=== PATIENT | male | born 1965 | race Two or more races ===

== ENCOUNTER 2020-12-28 10:30 | Inpatient (IN) | payer OTHER ==
[~2020-12-28] VITALS: Ht 188 cm; Wt 102.1 kg
[2020-12-28] MEDS ORDERED: LOSARTAN POTASS25 MG PO (14:55)
[2020-12-30] MEDS ORDERED: HYDRODIURIL12.5 MG (12:46)
[2020-12-30] MEDS ORDERED: DILTIAZEM 24HR180 MG (12:46)
[2020-12-30] MEDS ORDERED: FENOFIBRATE145 MG (12:46)
[2020-12-30] MEDS ORDERED: XARELTO20 MG (12:46)
[2020-12-30] MEDS ORDERED: AMIODARONE HCL200 MG (12:46)
[2021-01-02] MEDS ORDERED: METFORMIN HCL500 M4 (08:12)
[2021-01-02] MEDS ORDERED: SPIRONOLACTONE25 MG (08:12)
[2021-01-02] MEDS ORDERED: MIRTAZAPINE30 MG (08:12)
[2021-01-02] MEDS ORDERED: ZOLPIDEM TARTRA10 MG (08:13)
[2021-01-02] MEDS ORDERED: SIMVASTATIN20 MG (08:13)
[2021-01-13] MEDS ORDERED: AMOX-CLAV 875-1 EACH PO (13:40)
[2021-01-13] MEDS ORDERED: PERCOCET 5-3251 EACH PO (13:41)
[2021-01-13] MEDS ORDERED: LOPERAMIDE2 M1 PO (13:43)
== END 2021-01-13 15:01 | disposition home or self-care (01) | DRG 329 ==
LOC: O/R 12-30 05:30 → SURH 12-30 05:30
PROVIDERS: ADMIT Surgery; ATTEND Surgery
PROC: 0DTP4ZZ Resection of Rectum, Percutaneous Endoscopic Approach (ICD-10-PCS; 2020-12-30)
PROC: 07BC4ZX Excision of Pelvis Lymphatic, Percutaneous Endoscopic Approach, Diagnostic (ICD-10-PCS; 2020-12-30)
PROC: 0D1B4Z4 Bypass Ileum to Cutaneous, Percutaneous Endoscopic Approach (ICD-10-PCS; 2020-12-30)
PROC: 0DJD8ZZ Inspection of Lower Intestinal Tract, Via Natural or Artificial Opening Endoscopic (ICD-10-PCS; 2020-12-30)
PROC: 0DBN4ZZ Excision of Sigmoid Colon, Percutaneous Endoscopic Approach (ICD-10-PCS; principal; 2020-12-30 14:15)
PROC: 4A12X4Z Monitoring of Cardiac Electrical Activity, External Approach (ICD-10-PCS; 2020-12-31)
PROC: 02HV33Z Insertion of Infusion Device into Superior Vena Cava, Percutaneous Approach (ICD-10-PCS; 2021-01-04)
PROC: 0W9J30Z Drainage of Pelvic Cavity with Drainage Device, Percutaneous Approach (ICD-10-PCS; 2021-01-10)
DX: C19 Malignant neoplasm of rectosigmoid junction (principal); K68.19 Other retroperitoneal abscess; I48.20 Chronic atrial fibrillation, unspecified; I50.22 Chronic systolic (congestive) heart failure; K56.7 Ileus, unspecified; N17.8 Other acute kidney failure; J98.11 Atelectasis; T81.43XA Infection following a procedure, organ and space surgical site, initial encounter; Z79.01 Long term (current) use of anticoagulants; I11.0 Hypertensive heart disease with heart failure; I25.5 Ischemic cardiomyopathy; F17.200 Nicotine dependence, unspecified, uncomplicated; E86.9 Volume depletion, unspecified; Z95.810 Presence of automatic (implantable) cardiac defibrillator; B96.20 Unspecified Escherichia coli [E. coli] as the cause of diseases classified elsewhere

== ENCOUNTER 2021-02-02 05:45 | Day surgery (SDC) | payer OTHER ==
[~2021-02-02 05:45] MED LIST: AMIODARONE HCL200 MG; AMOX-CLAV 875-1 EACH PO; DILTIAZEM 24HR180 MG; FENOFIBRATE145 MG; HYDRODIURIL12.5 MG; LOPERAMIDE2 M1 PO; LOSARTAN POTASS25 MG PO; METFORMIN HCL500 M4; MIRTAZAPINE30 MG; PERCOCET 5-3251 EACH PO; SIMVASTATIN20 MG; SPIRONOLACTONE25 MG; XARELTO20 MG; ZOLPIDEM TARTRA10 MG
[2021-02-02] MEDS ORDERED: ULTRAM50 MG PO (09:39)
== END 2021-02-02 10:25 | disposition home or self-care (01) ==
LOC: CIR.AMB 05:45
PROVIDERS: ATTEND Surgery
DX: C20 Malignant neoplasm of rectum (principal); Z20.822 Contact with and (suspected) exposure to COVID-19
CPT/HCPCS: 36561; C1751

== ENCOUNTER 2022-02-19 14:59 | Inpatient (IN) | payer OTHER ==
[~2022-02-19] VITALS: Ht 190.5 cm; Wt 194.6 kg
[~2022-02-19 14:59] MED LIST changes: +ULTRAM50 MG PO
[2022-02-22] MEDS ORDERED: GABAPENTIN800 M1 (08:02)
[2022-02-22] MEDS ORDERED: TAMSULOSIN HCL0.4 MG (08:02)
[2022-02-22] MEDS ORDERED: ESCITALOPRAM OX20 MG (08:02)
[2022-02-22] MEDS ORDERED: PROPAFENONE HC225 MG (08:02)
[2022-02-22] MEDS ORDERED: MIRTAZAPINE30 MG (08:02)
[2022-02-28] MEDS ORDERED: PERCOCET 5-3251 EACH PO (15:11)
== END 2022-02-28 17:57 | disposition home or self-care (01) | DRG 347 ==
LOC: O/R 02-22 05:42 → SURH 02-22 05:42 → SURG 02-22 07:00 → SURH 02-22 10:26 → SURG 02-22 10:30 → SURH 02-28 17:57
PROVIDERS: ADMIT Surgery; ATTEND Surgery
PROC: 0DBB4ZZ Excision of Ileum, Percutaneous Endoscopic Approach (ICD-10-PCS; principal; 2022-02-22 07:00)
PROC: 4A12X4Z Monitoring of Cardiac Electrical Activity, External Approach (ICD-10-PCS; 2022-02-23)
DX: Z43.2 Encounter for attention to ileostomy (principal); K65.1 Peritoneal abscess; C20 Malignant neoplasm of rectum; K62.5 Hemorrhage of anus and rectum; K66.0 Peritoneal adhesions (postprocedural) (postinfection); I48.0 Paroxysmal atrial fibrillation; R19.7 Diarrhea, unspecified; Z20.822 Contact with and (suspected) exposure to COVID-19; Z92.21 Personal history of antineoplastic chemotherapy; I11.0 Hypertensive heart disease with heart failure; I50.9 Heart failure, unspecified; E78.5 Hyperlipidemia, unspecified

== ENCOUNTER 2024-04-21 09:48 | Inpatient (IN) | payer OTHER ==
[~2024-04-21] VITALS: Ht 213.4 cm; Wt 81.6 kg
[~2024-04-21 09:48] MED LIST changes: +ESCITALOPRAM OX20 MG; +GABAPENTIN800 M1; +PROPAFENONE HC225 MG; +TAMSULOSIN HCL0.4 MG
--- NOTE | 2024-04-21 10:14 | NUR ---
PTE LLEGA EN AMBULANCIA POR COMPLIACACION DE CIRUGIA . POR EL , [place].SE LE KYLEE Y SE DOCUEMTA.
[2024-04-21] MEDS ORDERED: 0.9 % SODIUM CHLORIDE 1,000 ML IV STA (10:31)
[2024-04-21] MEDS ORDERED: MORPHINE SULFATE 4 MG/ML VIAL IV STA (10:34)
[2024-04-21 11:06] LABS: HEMATOCRIT 29.6 % (39.0-48.0); MEAN CELL VOLUME 96.2 fL (80.0-100.00); MEAN CORPUSCULAR HGB CONC 33.3 g/dl (32.0-36.0); PLATELET COUNT 256 K/uL (150-450); RED BLOOD COUNT 3.08 M/uL (4.00-6.00)
[2024-04-21 11:08] LABS: MEAN CORPUSCULAR HEMOGLOBIN 31.8 pg (27.00-32.0); RED CELL DISTRIBUTION WIDTH 17.9 % (11.5-14.5)
[2024-04-21 11:09] LABS: HEMOGLOBIN 9.8 g/dL (13-16.00)
--- NOTE | 2024-04-21 11:15 | NUR ---
PACIENTE EVALUADO POR QUIEN ORDENA TRATAMIENTO MEDICO, SE LE ORIENTA A PACIENTE SOBRE EL MISMO Y REFIERE ENTENDER, SE LE COLECTAN MUESTRAS Y SE CANLAIZA BAJO MEDIDAS ASEPTICAS. SE LE ADMINSITRAN MEDICAMENTOS JUVENCIO ORDEN. PACIENTE TOLERA Y NO PRESENTA REACCION ADVERSA.
[2024-04-21 11:32] LABS: ALBUMIN 1.9 gm/dL (3.4-5.0); BILIRUBIN TOTAL 0.58 mg/dL (0.3-1.2); BILIRUBIN,CONJUGATED 0.19 mg/dL (0.0-0.2); BILIRUBIN,UNCONJUGATED 0.39 mg/dL (0.0-0.6); CALCIUM 9.2 mg/dL (8.5-10.1); CREATININE SERUM 0.68 mg/dL (0.70-1.30); GFR 119.35; POTASSIUM 3.53 mEq/L (3.5-5.1); TOTAL PROTEIN 6.2 gm/dL (6.4-8.2)
[2024-04-21 11:49] LABS: INR 1.26; PARTIAL THROMBOPLASTIN TIME 31.2 SECONDS (22.0-34.0); PROTHROMBIN TIME 13.5 SECONDS (9.0-11.5)
[2024-04-21] MEDS ORDERED: PIPERACILLIN/TAZOBACTAM SODIUM 3.375 GM in 0.9 % SODIUM CHLORIDE 100 ML IV SCH (12:00)
[2024-04-21] MEDS ORDERED: MORPHINE SULFATE 4 MG/ML CARTRIDGE IV ONE (12:30)
[2024-04-21 12:36] LABS: PH,URINE 6.5 (5.0-8.0); URINE APPEARANCE Clear; URINE BILIRRUBIN Negative (NEGATIVE); URINE BLOOD Negative; URINE COLOR Yellow; URINE GLUCOSE Negative (NEGATIVE); URINE KETONE Negative (NEGATIVE); URINE LEUKOCYTE Negative; URINE NITRATE Negative; URINE PROTEIN Negative (NEGATIVE); URINE UROBILINOGEN 0.2 E.U./dl
[2024-04-21 12:39] LABS: URINE BACTERIA 8.8 uL (0.0-1933); URINE WBC 4.6 uL (0.0-23.2)
[2024-04-21] MEDS ORDERED: FAMOTIDINE/PF 20 MG/2 ML VIAL IV SCH (12:40)
[2024-04-21] MEDS ORDERED: RINGERS SOLUTION,LACTATED 1,000 ML IV SCH (12:45)
[2024-04-21] MEDS ORDERED: ONDANSETRON HCL 2 MG/ML VIAL IV PRN (12:45)
[2024-04-21] MEDS ORDERED: MORPHINE SULFATE 4 MG/ML VIAL IV PRN (12:45)
[2024-04-21] MEDS ORDERED: HYOSCYAMINE SULFATE 0.125 MG TAB.SUBL SL SCH (13:00)
--- NOTE | 2024-04-21 15:15 | NUR ---
1430: PACIENTE ALERTA Y ORIENTADO A QUIEN SE LE PROVEE CAMBIO DE ROPA PARA OR, EL MISMO ABANDONA NIKKI DE EMERGENCIAS CON ESCOLTA DE TURNO, PACIENTE CANALIZADO X2 CON VENOPUNCIONES PATENTES, LIBRES DE EDEMA Y ERITEMA. RECIBIENDO PRBC'S BAJANDO A 125ML/HR, Y 0.9%NSS BAJANDO A 100ML/HR. ESCOLTA DE TURNO SE LLEVA RECORD DE PACIENTE. PENDIENTE CULMINAR DOCUMENTACION DE PRBC'S YA QUE LA MISMA NO ESQUIVEL CULMINADO Y PACIENTE FUE LLEVADO A NIKKI DE OPERACIONES.
[2024-04-21] MEDS ORDERED: LIDOCAINE HCL 1%/EPINEPHRINE 20ML VIAL IJ ONE (16:00)
[2024-04-21] MEDS ORDERED: BUPIVACAINE HCL 30 ML VIAL IJ ONE (16:00)
[2024-04-21] MEDS ORDERED: POVIDONE-IODINE 118 ML BOTT TOP ONE (16:00)
[2024-04-21] MEDS ORDERED: HEMOSTATIC MATRIX 1 KIT KIT TOP ONE (16:15)
[2024-04-21] MEDS ORDERED: DIBUCAINE 15 GM OINT..GM. TUBE RECTAL ONE (16:15)
[2024-04-21] MEDS ORDERED: MORPHINE SULFATE 4 MG/ML VIAL IV ONE (17:05)
[2024-04-21 19:50] VITALS: BP 162/78; O2SAT 98
[2024-04-22] VITALS (8 sets, daily range): BP systolic 101–138; BP diastolic 55–79; O2SAT 97–99
[2024-04-22 08:17] LABS: HEMATOCRIT 29.7 % (39.0-48.0); HEMOGLOBIN 9.7 g/dL (13-16.00); MEAN CELL VOLUME 95.3 fL (80.0-100.00); MEAN CORPUSCULAR HEMOGLOBIN 31.1 pg (27.00-32.0); MEAN CORPUSCULAR HGB CONC 32.7 g/dl (32.0-36.0); PLATELET COUNT 261 K/uL (150-450); RED BLOOD COUNT 3.12 M/uL (4.00-6.00); RED CELL DISTRIBUTION WIDTH 17.8 % (11.5-14.5)
[2024-04-22 08:55] LABS: ALBUMIN 1.7 gm/dL (3.4-5.0); CALCIUM 8.1 mg/dL (8.5-10.1); CREATININE SERUM 0.62 mg/dL (0.70-1.30); GFR 132.78; PHOSPHOROUS 3.6 mg/dL (2.5-4.9); POTASSIUM 3.71 mEq/L (3.5-5.1)
[2024-04-22 08:59] LABS: MAGNESIUM 1.4 mg/dL (1.8-2.4)
[2024-04-22] MEDS ORDERED: ENOXAPARIN SODIUM 40 MG/0.4 ML SYRINGE SUBCUTANEO SCH (09:00)
[2024-04-22] MEDS ORDERED: GABAPENTIN 300 MG CAPSULE PO SCH (09:11)
[2024-04-22] MEDS ORDERED: ACETAMINOPHEN 500 MG GEL..CAP PO SCH (09:11)
[2024-04-22] MEDS ORDERED: DEXTROSE 50 % IN WATER 0.5 G/ML DISP.SYRIN IV PRN (10:30)
[2024-04-22] MEDS ORDERED: INSULIN LISPRO 1,000 UNIT/10 ML UNITS SUBCUTANEO PRN (10:30)
[2024-04-22] MEDS ORDERED: VANCOMYCIN HCL 1,000 MG VIAL IV NR (11:00)
[2024-04-22] MEDS ORDERED: MAGNESIUM SULFATE IN WATER 4 GM/100 ML PIGGYBACK IV NR (12:00)
[2024-04-22] MEDS ORDERED: SERTRALINE HCL 50 MG TABLET PO NR (12:00)
[2024-04-22] MEDS ORDERED: MEROPENEM 500 MG/VIAL VIAL IV SCH (12:00)
[2024-04-22] MEDS ORDERED: MORPHINE SULFATE 4 MG/ML CARTRIDGE IV PRN (14:30)
[2024-04-22] MEDS ORDERED: AMINO ACIDS/PROTEIN HYDROLYS 30 ML BLIST.PACK PO SCH (17:00)
[2024-04-22] MEDS ORDERED: CALCIUM CARBONATE/VITAMIN D3 1 TAB TABLET PO SCH (17:00)
[2024-04-22] MEDS ORDERED: METRONIDAZOLE/SODIUM CHLORIDE 100 ML IV SCH (17:00)
[2024-04-22] MEDS ORDERED: VANCOMYCIN HCL 1,000 MG VIAL IV SCH (21:00)
[2024-04-23] VITALS (8 sets, daily range): BP systolic 118–136; BP diastolic 85–97; O2SAT 97–99
[2024-04-23 07:43] LABS: HEMATOCRIT 29.3 % (39.0-48.0); MEAN CELL VOLUME 94.2 fL (80.0-100.00); MEAN CORPUSCULAR HEMOGLOBIN 32.2 pg (27.00-32.0); MEAN CORPUSCULAR HGB CONC 34.2 g/dl (32.0-36.0); PLATELET COUNT 283 K/uL (150-450); RED CELL DISTRIBUTION WIDTH 18.7 % (11.5-14.5)
[2024-04-23] MEDS ORDERED: SERTRALINE HCL 50 MG TABLET PO SCH (09:00)
[2024-04-23 10:00] LABS: ALBUMIN 1.6 gm/dL (3.4-5.0); BILIRUBIN TOTAL 0.47 mg/dL (0.3-1.2); CALCIUM 7.9 mg/dL (8.5-10.1); CREATININE SERUM 0.43 mg/dL (0.70-1.30); GFR 202.55; GLOBULINA 3.3 G/DL (2.4-3.5); MAGNESIUM 1.6 mg/dL (1.8-2.4); PHOSPHOROUS 3.2 mg/dL (2.5-4.9); POTASSIUM 3.52 mEq/L (3.5-5.1); TOTAL PROTEIN 4.9 gm/dL (6.4-8.2)
[2024-04-23 10:02] LABS: C-REACTIVE PROTEIN 29.2 MG/DL (0.00-0.29)
[2024-04-23] MEDS ORDERED: HYOSCYAMINE SULFATE 0.125 MG TAB.SUBL SL PRN (10:17)
[2024-04-23] MEDS ORDERED: GABAPENTIN 300 MG CAPSULE PO PRN (10:17)
[2024-04-23] MEDS ORDERED: ENOXAPARIN SODIUM 40 MG/0.4 ML SYRINGE SUBCUTANEO ONE (10:45)
[2024-04-23 12:26] LABS: CALCIUM 7.9 mg/dL (8.5-10.1); CHOL HDL RATIO 8.2 (0-5.0); CREATININE SERUM 0.46 mg/dL (0.70-1.30); GFR 187.38; POTASSIUM 3.56 mEq/L (3.5-5.1)
[2024-04-23] MEDS ORDERED: AMINO ACIDS 4.25%/DEXTROSE 10% 1,000 ML CENTRAL SCH (17:00)
[2024-04-23] MEDS ORDERED: METOPROLOL TARTRATE 25 MG TABLET PO SCH (21:00)
[2024-04-23] MEDS ORDERED: ENOXAPARIN SODIUM 80 MG/0.8 ML SYRINGE SUBCUTANEO SCH (21:00)
[2024-04-24] VITALS (8 sets, daily range): BP systolic 126–139; BP diastolic 80–83; O2SAT 96–100
[2024-04-24] MEDS ORDERED: SILVER SULFADIAZINE 50 GM,NYSTATIN 30 GM,ZINC OXIDE 30 GM TOP SCH ×2 (17:00)
[2024-04-25] VITALS (8 sets, daily range): BP systolic 118–132; BP diastolic 76–88; O2SAT 95–99
[2024-04-25 07:57] LABS: HEMATOCRIT 30.1 % (39.0-48.0); HEMOGLOBIN 9.8 g/dL (13-16.00); MEAN CELL VOLUME 96.6 fL (80.0-100.00); MEAN CORPUSCULAR HEMOGLOBIN 31.6 pg (27.00-32.0); MEAN CORPUSCULAR HGB CONC 32.7 g/dl (32.0-36.0); PLATELET COUNT 269 K/uL (150-450); RED BLOOD COUNT 3.11 M/uL (4.00-6.00); RED CELL DISTRIBUTION WIDTH 18.3 % (11.5-14.5)
[2024-04-25 08:12] LABS: ALBUMIN 1.6 gm/dL (3.4-5.0); BILIRUBIN TOTAL 0.19 mg/dL (0.3-1.2); CALCIUM 7.7 mg/dL (8.5-10.1); CREATININE SERUM 0.4 mg/dL (0.70-1.30); GFR 220.18; GLOBULINA 3.4 G/DL (2.4-3.5); PHOSPHOROUS 2.5 mg/dL (2.5-4.9); POTASSIUM 3.75 mEq/L (3.5-5.1)
[2024-04-25 08:41] LABS: MAGNESIUM 1.4 mg/dL (1.8-2.4)
[2024-04-25] MEDS ORDERED: AMPICILLIN SODIUM/SULBACTAM NA 3,000 MG VIAL IV SCH (18:00)
[2024-04-26] VITALS (7 sets, daily range): BP systolic 115–125; BP diastolic 60–90; O2SAT 96–99
[2024-04-27 01:00] VITALS: BP 135/91; O2SAT 95
[2024-04-27 07:12] LABS: HEMATOCRIT 29.6 % (39.0-48.0); HEMOGLOBIN 9.9 g/dL (13-16.00); MEAN CELL VOLUME 95.3 fL (80.0-100.00); MEAN CORPUSCULAR HEMOGLOBIN 31.9 pg (27.00-32.0); MEAN CORPUSCULAR HGB CONC 33.4 g/dl (32.0-36.0); PLATELET COUNT 343 K/uL (150-450); RED BLOOD COUNT 3.11 M/uL (4.00-6.00); RED CELL DISTRIBUTION WIDTH 18.2 % (11.5-14.5)
[2024-04-27 07:37] LABS: INR 1.74; PARTIAL THROMBOPLASTIN TIME 34.8 SECONDS (22.0-34.0)
[2024-04-27 07:40] LABS: PROTHROMBIN TIME 18.2 SECONDS (9.0-11.5)
[2024-04-27] MEDS ORDERED: MORPHINE SULFATE 4 MG/ML CARTRIDGE IV PRN (08:00)
[2024-04-27 08:06] LABS: ALBUMIN 1.7 gm/dL (3.4-5.0); ALKALINE PHOSPHATASE 80 U/L (50-136); ALT/SGPT 13 U/L (12-78); ANION GAP 8 (10.0-20.0); AST/SGOT 18 U/L (15-37); BILIRUBIN TOTAL 0.25 mg/dL (0.3-1.2); BILIRUBIN,CONJUGATED < 0.10 mg/dL (0.0-0.2); BILIRUBIN,UNCONJUGATED 0.15 mg/dL (0.0-0.6); BLOOD UREA NITROGEN 10 mg/dL (7-18); BUN CREA RATIO 20 (7.0-25.0); CARBON DIOXIDE 32 mEq/L (21-32); CHLORIDE 106 mmol/L (98-107); CHOL HDL RATIO 5.8 (0-5.0); CHOLESTEROL 75 mg/dL (0-200); GFR 170.19; GLOBULINA 3.8 G/DL (2.4-3.5); GLUCOSE FASTING 122 mg/dL (65-100); LDL 31 mg/dl (0-130); OSMOLALITY SERUM 283 MOSM/KG (275-295); SODIUM 142 mmol/L (136-145); TOTAL PROTEIN 5.5 gm/dL (6.4-8.2); TRIGLYCERIDES 153 mg/dL (0-150); VLDL 30 (0-39)
[2024-04-27 08:11] LABS: HDL 13 mg/dl (40-60)
[2024-04-27 08:42] VITALS: BP 132/89; O2SAT 99
[2024-04-27] MEDS ORDERED: ENOXAPARIN SODIUM 40 MG/0.4 ML SYRINGE SUBCUTANEO SCH (09:00)
[2024-04-27 11:53] LABS: UREA CLEARANCE 65.5 ML/MIN
[2024-04-27 12:00] VITALS: BP 138/91; O2SAT 97
[2024-04-27 16:50] VITALS: BP 125/90; O2SAT 95
[2024-04-27] MEDS ORDERED: METOPROLOL SUCCINATE 50 MG TAB.SR.24H PO STA (20:37)
[2024-04-28 01:23] VITALS: BP 169/83; O2SAT 97
[2024-04-28 01:45] VITALS: O2SAT 98
[2024-04-28 05:44] VITALS: O2SAT 96
[2024-04-28 08:30] VITALS: BP 140/90; O2SAT 96
[2024-04-28 08:48] LABS: INR 1.89; PARTIAL THROMBOPLASTIN TIME 34.5 SECONDS (22.0-34.0)
[2024-04-28 08:53] LABS: PROTHROMBIN TIME 19.7 SECONDS (9.0-11.5)
[2024-04-28 16:00] VITALS: BP 137/87; O2SAT 95
[2024-04-28 19:31] VITALS: O2SAT 98
[2024-04-28 19:57] LABS: PT 50:50 13.4 SECONDS (9.7-11.4); PTT 50:50 30.5 SECONDS (22.4-33.0)
[2024-04-29] VITALS (8 sets, daily range): BP systolic 103–130; BP diastolic 69–75; O2SAT 91–100
[2024-04-29 06:32] LABS: HEMATOCRIT 27.9 % (39.0-48.0); HEMOGLOBIN 9.1 g/dL (13-16.00); MEAN CORPUSCULAR HEMOGLOBIN 30.9 pg (27.00-32.0); MEAN CORPUSCULAR HGB CONC 32.5 g/dl (32.0-36.0); PLATELET COUNT 354 K/uL (150-450); RED BLOOD COUNT 2.94 M/uL (4.00-6.00); RED CELL DISTRIBUTION WIDTH 18.6 % (11.5-14.5)
[2024-04-29 06:49] LABS: INR 2.07; PARTIAL THROMBOPLASTIN TIME 35.9 SECONDS (22.0-34.0)
[2024-04-29 06:50] LABS: PROTHROMBIN TIME 21.4 SECONDS (9.0-11.5)
[2024-04-29] MEDS ORDERED: FUROsemide 20 MG/2 ML VIAL IV SCH (18:41)
[2024-04-29] MEDS ORDERED: ONDANSETRON HCL 2 MG/ML VIAL IV SCH (20:06)
[2024-04-29] MEDS ORDERED: METOPROLOL TARTRATE 25 MG TABLET PO SCH (21:00)
[2024-04-29] MEDS ORDERED: ZOLPIDEM TARTRATE 5 MG TABLET PO SCH (21:00)
[2024-04-30 01:02] VITALS: BP 79/61; O2SAT 97
[2024-04-30 03:52] VITALS: O2SAT 98
[2024-04-30] MEDS ORDERED: PHYTONADIONE 10 MG/ML AMPUL SUBCUTANEO ONE (06:15)
[2024-04-30 08:00] VITALS: BP 110/56; O2SAT 97
[2024-04-30] MEDS ORDERED: METOPROLOL TARTRATE 50 MG TABLET PO SCH (09:00)
[2024-04-30] MEDS ORDERED: ONDANSETRON HCL 2 MG/ML VIAL IV SCH (09:00)
[2024-04-30 09:04] LABS: ALBUMIN 1.9 gm/dL (3.4-5.0); BILIRUBIN,CONJUGATED 0.34 mg/dL (0.0-0.2); BILIRUBIN,UNCONJUGATED 0.66 mg/dL (0.0-0.6); CALCIUM 8.1 mg/dL (8.5-10.1); CREATININE SERUM 0.61 mg/dL (0.70-1.30); GFR 135.29; GLOBULINA 4.3 G/DL (2.4-3.5); POTASSIUM 4.13 mEq/L (3.5-5.1); TOTAL PROTEIN 6.2 gm/dL (6.4-8.2)
[2024-04-30 09:17] LABS: D DIMER 3.14 MG/L; PARTIAL THROMBOPLASTIN TIME 36.7 SECONDS (22.0-34.0)
[2024-04-30 09:20] LABS: PROTHROMBIN TIME 23.7 SECONDS (9.0-11.5)
[2024-04-30 09:20] LABS: FIBRINOGEN > 860 mg/dL (187.0-446.0)
[2024-04-30 09:21] LABS: INR 2.31
[2024-04-30] MEDS ORDERED: PHYTONADIONE 10 MG/ML AMPUL SUBCUTANEO STA (10:56)
[2024-04-30 12:37] LABS: HEMATOCRIT 31.2 % (39.0-48.0); HEMOGLOBIN 10.4 g/dL (13-16.00); MEAN CELL VOLUME 93.1 fL (80.0-100.00); MEAN CORPUSCULAR HGB CONC 33.3 g/dl (32.0-36.0); PLATELET COUNT 349 K/uL (150-450); RED BLOOD COUNT 3.35 M/uL (4.00-6.00); RED CELL DISTRIBUTION WIDTH 19.7 % (11.5-14.5)
[2024-04-30 16:36] VITALS: O2SAT 94
[2024-04-30 17:08] VITALS: BP 146/79; O2SAT 100
[2024-04-30 20:50] VITALS: O2SAT 97
[2024-05-01] VITALS (7 sets, daily range): BP systolic 104–138; BP diastolic 69–88; O2SAT 94–100
[2024-05-01] MEDS ORDERED: METOPROLOL TARTRATE 50 MG TABLET PO SCH (01:00)
[2024-05-01 07:56] LABS: PT 50:50 11.5 SECONDS (9.7-11.4); PTT 50:50 30.1 SECONDS (22.4-33.0)
[2024-05-01] MEDS ORDERED: PATIENTS OWN MEDICATION (MEDICAMENTO EN PISO) PO SCH (09:00)
[2024-05-01 09:19] LABS: PLATELET ESTIMATE NORMAL (NORMAL)
[2024-05-01 13:25] LABS: PT 50:50 10.9 SECONDS (9.7-11.4); PTT 50:50 28.2 SECONDS (22.4-33.0)
[2024-05-01 13:26] LABS: INR 1.45; PARTIAL THROMBOPLASTIN TIME 30.2 SECONDS (22.0-34.0); PROTHROMBIN TIME 15.4 SECONDS (9.0-11.5)
[2024-05-01] MEDS ORDERED: MORPHINE SULFATE 2 MG/ML CARTRIDGE IV ONE ×2 (21:35→22:05)
[2024-05-01] MEDS ORDERED: SUGAMMADEX SODIUM 200 MG/2 ML VIAL IV ONE (23:15)
[2024-05-02] VITALS (8 sets, daily range): BP systolic 90–129; BP diastolic 64–81; O2SAT 90–100
[2024-05-02] MEDS ORDERED: MEPERIDINE HCL/PF 25 MG/ML VIAL IV PRN (13:00)
[2024-05-02] MEDS ORDERED: DILTIAZEM HCL 125 MG in 0.9 % SODIUM CHLORIDE 125 ML IV SCH (16:45)
[2024-05-02] MEDS ORDERED: DILTIAZEM HCL 125 MG in 0.9 % SODIUM CHLORIDE 100 ML IV SCH (16:45)
[2024-05-03 00:40] VITALS: BP 104/67; O2SAT 94
[2024-05-03 02:00] VITALS: O2SAT 100
[2024-05-03 08:00] VITALS: BP 131/82; O2SAT 100
[2024-05-03 09:24] LABS: ALBUMIN 1.9 gm/dL (3.4-5.0); BILIRUBIN TOTAL 0.59 mg/dL (0.3-1.2); CALCIUM 8.1 mg/dL (8.5-10.1); CREATININE SERUM 0.79 mg/dL (0.70-1.30); GFR 100.39; GLOBULINA 4.6 G/DL (2.4-3.5); PHOSPHOROUS 2.7 mg/dL (2.5-4.9); POTASSIUM 3.77 mEq/L (3.5-5.1); TOTAL PROTEIN 6.5 gm/dL (6.4-8.2)
[2024-05-03 09:33] LABS: C-REACTIVE PROTEIN 19.4 MG/DL (0.00-0.29); MAGNESIUM 1.4 mg/dL (1.8-2.4)
[2024-05-03] MEDS ORDERED: ENOXAPARIN SODIUM 40 MG/0.4 ML SYRINGE SUBCUTANEO STA (12:14)
[2024-05-03] MEDS ORDERED: FUROsemide 20 MG/2 ML VIAL IV SCH (13:00)
[2024-05-03] MEDS ORDERED: TAMSULOSIN HCL 0.4 MG CAP PO NR (13:00)
[2024-05-03] MEDS ORDERED: PATIENTS OWN MEDICATION (MEDICAMENTO EN PISO) PO STA (13:28)
[2024-05-03] MEDS ORDERED: METOPROLOL SUCCINATE 50 MG TAB.SR.24H PO STA (15:03)
[2024-05-03] MEDS ORDERED: METOPROLOL TARTRATE 50 MG TABLET PO STA (15:29)
[2024-05-03] MEDS ORDERED: PATIENTS OWN MEDICATION (MEDICAMENTO EN PISO) PO SCH (15:30)
[2024-05-03 16:00] VITALS: BP 106/70; O2SAT 100
[2024-05-03 17:54] VITALS: O2SAT 100
[2024-05-03] MEDS ORDERED: FUROsemide 40 MG/4 ML VIAL IV STA (18:21)
[2024-05-03] MEDS ORDERED: AMIODARONE IN DEXTROSE,ISO-OSM 360 MG/200 ML IV.SOLN IV SCH (18:30)
[2024-05-03 18:35] VITALS: BP 110/70; O2SAT 95
[2024-05-03] MEDS ORDERED: AMIODARONE HCL 50 MG/ML AMPUL IV SCH (18:45)
[2024-05-03] MEDS ORDERED: AMIODARONE HCL 50 MG/ML AMPUL IV ONE (19:00)
[2024-05-03] MEDS ORDERED: FUROSEMIDE IV SCH (20:00)
[2024-05-03] MEDS ORDERED: SODIUM CHLORIDE 0.9% IV SCH (20:00)
[2024-05-03] MEDS ORDERED: METOPROLOL SUCCINATE 50 MG TAB.SR.24H PO SCH (21:00)
[2024-05-04] MEDS ORDERED: METOPROLOL TARTRATE 50 MG TABLET PO SCH (01:00)
[2024-05-04] MEDS ORDERED: PATIENTS OWN MEDICATION (MEDICAMENTO EN PISO) PO SCH (09:00)
[2024-05-04] MEDS ORDERED: ENOXAPARIN SODIUM 40 MG/0.4 ML SYRINGE SUBCUTANEO SCH (09:00)
[2024-05-04] MEDS ORDERED: TAMSULOSIN HCL 0.4 MG CAP PO SCH (09:00)
[2024-05-06 12:10] LABS: VITAMIN K < 0.10 ng/mL (0.10-2.20)
[2024-05-06 14:04] LABS: FACTOR VII ACTIVITY 14 % (51-186)
== END 2024-05-03 23:40 | disposition expired | DRG 166 ==
LOC: ER 09:48 → SURH 12:52 → O/R 12:52 → SEC-K 12:52 → O/R 14:50 → SURH 17:27
PROVIDERS: General Practice; Internal Medicine Infectious Disease; Surgery; ADMIT Surgery; ATTEND Surgery
PROC: 30233L1 Transfusion of Nonautologous Fresh Plasma into Peripheral Vein, Percutaneous Approach (ICD-10-PCS; 2024-04-21)
PROC: 0D9P0ZZ Drainage of Rectum, Open Approach (ICD-10-PCS; 2024-04-21)
PROC: 0J9B0ZZ Drainage of Perineum Subcutaneous Tissue and Fascia, Open Approach (ICD-10-PCS; 2024-04-21)
PROC: 3E0T3BZ Introduction of Anesthetic Agent into Peripheral Nerves and Plexi, Percutaneous Approach (ICD-10-PCS; 2024-04-21)
PROC: BW21YZZ Computerized Tomography (CT Scan) of Abdomen and Pelvis using Other Contrast (ICD-10-PCS; 2024-04-21)
PROC: 0JB70ZZ Excision of Back Subcutaneous Tissue and Fascia, Open Approach (ICD-10-PCS; principal; 2024-04-21 15:00)
PROC: 02HV33Z Insertion of Infusion Device into Superior Vena Cava, Percutaneous Approach (ICD-10-PCS; 2024-04-22)
PROC: 4A12X4Z Monitoring of Cardiac Electrical Activity, External Approach (ICD-10-PCS; 2024-04-22)
PROC: 8E0ZXY6 Isolation (ICD-10-PCS; 2024-04-22)
PROC: B246ZZZ Ultrasonography of Right and Left Heart (ICD-10-PCS; 2024-04-23)
PROC: B54MZZZ Ultrasonography of Right Upper Extremity Veins (ICD-10-PCS; 2024-04-24)
PROC: 30233R1 Transfusion of Nonautologous Platelets into Peripheral Vein, Percutaneous Approach (ICD-10-PCS; 2024-04-28)
PROC: 30233N1 Transfusion of Nonautologous Red Blood Cells into Peripheral Vein, Percutaneous Approach (ICD-10-PCS; 2024-04-29)
PROC: 0D1N4Z4 Bypass Sigmoid Colon to Cutaneous, Percutaneous Endoscopic Approach (ICD-10-PCS; 2024-05-01)
PROC: 0DTE4ZZ Resection of Large Intestine, Percutaneous Endoscopic Approach (ICD-10-PCS; 2024-05-01)
PROC: 0DNW4ZZ Release Peritoneum, Percutaneous Endoscopic Approach (ICD-10-PCS; 2024-05-01)
PROC: 0W9J4ZZ Drainage of Pelvic Cavity, Percutaneous Endoscopic Approach (ICD-10-PCS; 2024-05-01)
PROC: 0BH18EZ Insertion of Endotracheal Airway into Trachea, Via Natural or Artificial Opening Endoscopic (ICD-10-PCS; 2024-05-03)
DX: J96.90 Respiratory failure, unspecified, unspecified whether with hypoxia or hypercapnia (principal); A41.9 Sepsis, unspecified organism; K68.19 Other retroperitoneal abscess; L89.154 Pressure ulcer of sacral region, stage 4; K61.1 Rectal abscess; C20 Malignant neoplasm of rectum; N17.8 Other acute kidney failure; K61.2 Anorectal abscess; K66.0 Peritoneal adhesions (postprocedural) (postinfection); I46.9 Cardiac arrest, cause unspecified; I48.91 Unspecified atrial fibrillation; D63.0 Anemia in neoplastic disease; I11.0 Hypertensive heart disease with heart failure; E78.49 Other hyperlipidemia; E11.649 Type 2 diabetes mellitus with hypoglycemia without coma; Z79.4 Long term (current) use of insulin; Z95.810 Presence of automatic (implantable) cardiac defibrillator; B96.29 Other Escherichia coli [E. coli] as the cause of diseases classified elsewhere; I50.89 Other heart failure; L89.150 Pressure ulcer of sacral region, unstageable